=== PATIENT | male | born 1975 | race African-American/Black ===

== ENCOUNTER → 2016-04-10 | Outpatient (CLI) | payer OTHER ==
[~2016-04-10] MED LIST: AMPYRA10 MG PO; CIPRO750 M1 PO; COLACE PO; DICLOFENAC PO; FLEXERIL PO; LORTAB 10-5001 EACH PO; PERCOCET 7.5-31 EACH PO; SENNA LAXATIVE8.6 M1 PO; TECFIDERA240 MG PO
== END | disposition home or self-care (01) ==
LOC: CSSDAY 09:47
DX: G35 Multiple sclerosis (principal); Z79.899 Other long term (current) drug therapy
CPT/HCPCS: 96413; J2323

== ENCOUNTER → 2016-05-08 | Outpatient (CLI) | payer OTHER | END | disposition home or self-care (01) | LOC: CSSDAY 12:50 | DX: G35 Multiple sclerosis (principal) | CPT/HCPCS: 96413; J2323 ==

== ENCOUNTER → 2016-06-12 | Outpatient (CLI) | payer OTHER | END | disposition home or self-care (01) | LOC: CSSDAY 10:05 | DX: G35 Multiple sclerosis (principal); Z79.899 Other long term (current) drug therapy | CPT/HCPCS: 96413; J2323 ==

== ENCOUNTER → 2016-06-29 | Outpatient (CLI) | payer OTHER ==
--- NOTE | ~2016-06-29 | CR58 ---
[facility] A Service of [facility] & [facility] RADIOLOGY TEXT RESULTS PATIENT: ASIF HAYNES [facility] [birth year] [facility] #: [id number] AGE: [address]: Franci Savage APRN SEX: M ORDER DR: [id number] [facility] [address] [place], [place] [address] [id number] O MR#: [id number] Acc #: [id number] NAME: ASIF HAYNES : 1975 SEX: M STUDY DATE/TIME: 06/29/2016 9:54 UNIT: [facility] ROOM: STUDY DESCRIPTION: CR Cervical Spine 2 or 3 Views Attending Physician: Franci Savage Aprn Ordering Physician: Franci Savage Aprn Primary Care Physician: Benny Stoll M.D. MEDICAL IMAGING REPORT This report is preliminary unless electronic signature is present EXAM Cervical spine 4 views, 06/29/2016 HISTORY Neck pain for 5 years. Degenerative disc disease and arthritis. No known injury. FINDINGS 4 lateral views of the cervical spine were obtained in the neutral position as well as in flexion and extension. In the neutral position as well as in flexion, there is 2.0 mm anterolisthesis of C3 on C4. This reduces on extension. The posterior vertebral body line is otherwise intact. The disc spaces are normally maintained. There is no retropharyngeal soft tissue swelling. IMPRESSION 2.0 mm anterolisthesis of C3 on C4 in the neutral position as well as in flexion. This reduces on extension. Dictated by... Chance Sellers M.D. THIS IS AN ELECTRONICALLY VERIFIED REPORT Chance Sellers M.D. at 06/30/2016 8:07 AM CORIN/stella TD: 06/29/2016 15:29 JOB #: [id number] MEDICAL IMAGING REPORT Page 1 of 1 COPY
--- NOTE | ~2016-06-29 | CR181 ---
[facility] A Service of [facility] & [facility] RADIOLOGY TEXT RESULTS PATIENT: ASIF HAYNES [facility] [birth year] UNIT #: [id number] AGE: [address]: Franci Savage APRN SEX: M ORDER DR: [id number] [facility] [address] [place], [place] [address] [id number] O MR#: [id number] Acc #: [id number] NAME: ASIF HAYNES : 1975 SEX: M STUDY DATE/TIME: 06/29/2016 9:54 UNIT: [facility] ROOM: STUDY DESCRIPTION: CR Lumbar Spine 2 or 3 Views Attending Physician: Franci Savage Aprn Ordering Physician: Franci Savage Aprn Primary Care Physician: Benny Stoll M.D. MEDICAL IMAGING REPORT This report is preliminary unless electronic signature is present EXAM Lumbar spine 5 views 06/29/2016 HISTORY Low back pain for 5 years with a degenerative disc disease, arthritis. No known injury. FINDINGS 5 lateral views of the lumbar spine were obtained in the neutral position as well as in flexion and extension. No fracture is seen. The posterior vertebral body line is intact and there is no anterolisthesis or retrolisthesis on flexion and extension. The disc spaces are normally maintained. IMPRESSION Negative lateral views of the lumbar spine. Dictated by... Chance Sellers M.D. THIS IS AN ELECTRONICALLY VERIFIED REPORT Chance Sellers M.D. at 06/30/2016 8:07 AM KRT/to TD: 06/29/2016 15:30 JOB #: [id number] MEDICAL IMAGING REPORT Page 1 of 1 COPY
== END | disposition home or self-care (01) ==
LOC: CRAD 09:34
DX: M50.30 Other cervical disc degeneration, unspecified cervical region (principal); M51.36 Other intervertebral disc degeneration, lumbar region; M43.12 Spondylolisthesis, cervical region
CPT/HCPCS: 72040; 72100

== ENCOUNTER → 2016-07-10 | Outpatient (CLI) | payer OTHER | END | disposition home or self-care (01) | LOC: CSSDAY 09:00 | DX: G35 Multiple sclerosis (principal); Z79.899 Other long term (current) drug therapy | CPT/HCPCS: 96413; J2323 ==

== ENCOUNTER → 2016-08-09 | Outpatient (CLI) | payer OTHER | END | disposition home or self-care (01) | LOC: CSSDAY 09:53 | DX: G35 Multiple sclerosis (principal); Z79.899 Other long term (current) drug therapy | CPT/HCPCS: 96413; J2323 ==

== ENCOUNTER → 2016-09-06 | Outpatient (CLI) | payer OTHER | END | disposition home or self-care (01) | LOC: CSSDAY 10:00 | DX: G35 Multiple sclerosis (principal) | CPT/HCPCS: 96413; J2323 ==

== ENCOUNTER → 2016-10-04 | Outpatient (CLI) | payer OTHER | END | disposition home or self-care (01) | LOC: CSSDAY 09:55 | DX: G35 Multiple sclerosis (principal) | CPT/HCPCS: 96413; J2323 ==